=== PATIENT | female | born 1980 | race African-American/Black ===

== ENCOUNTER → 2016-11-11 | Outpatient (CLI) | payer MEDICAID ==
[~2016-11-11] MED LIST: ENOX40P SC; ENOX40P SQ; GLYB2.5T3 PO; IBUP-232 PO; INSU1INJ4 SQ; MAKE250I IM; OXYC1SOL5 PO; PRENCAP6 OR; Z.0.HUMULIN REGULARU SQ
== END ==
LOC: HPND 10:04
PROVIDERS: ATTEND Obstetrics & Gynecology
DX: O24.414 Gestational diabetes mellitus in pregnancy, insulin controlled (principal); O09.522 Supervision of elderly multigravida, second trimester; O99.112 Other diseases of the blood and blood-forming organs and certain disorders involving the immune mechanism complicating pregnancy, second trimester; D69.6 Thrombocytopenia, unspecified; Z3A.00 Weeks of gestation of pregnancy not specified
CPT/HCPCS: 76816

== ENCOUNTER 2016-11-22 12:50 | Emergency (ER) | payer MEDICAID ==
[~2016-11-22 12:50] MED LIST changes: -ENOX40P SQ; -GLYB2.5T3 PO; -IBUP-232 PO; -MAKE250I IM
[2016-11-22] MEDS ORDERED: MAKE250I IM (13:55)
[2016-11-22] MEDS ORDERED: BETAMETHASONE SOD PHOS/ACETATE SUSP 30 MG/5 ML VIAL IM ONE (14:30)
[2016-11-22 14:46] LABS: BACTERIA, URINE RARE /hpf; BLOOD, URINE TRACE (NEG); COMMENT (UR) CULT NOT INDICATED; CULTURE IF INDICATED CULT NOT INDICATED; GLUCOSE,URINE NEG (NEG); KETONE, URINE NEG (NEG); MUCUS URINE FEW /lpf (OCC); NITRITE,URINE NEG (NEG); PH, URINE 6.5 (5.0-8.5); SQUAMOUS EPITHELIAL CELL URINE 5 /hpf (0-5); URINE COLOR YELLOW (YELLW/STRAW)
== END 2016-11-22 17:13 | disposition home or self-care (01) ==
LOC: HOBED 12:50
DX: O24.419 Gestational diabetes mellitus in pregnancy, unspecified control (principal); Z3A.00 Weeks of gestation of pregnancy not specified
CPT/HCPCS: 81001; 82731; 96372; 99284; J0702

== ENCOUNTER 2016-12-19 11:05 | Observation (INO) | payer MEDICAID ==
[~2016-12-19 11:05] MED LIST changes: +MAKE250I IM; -OXYC1SOL5 PO; -PRENCAP6 OR; -Z.0.HUMULIN REGULARU SQ
[2016-12-19 12:43] LABS: AUTOMATED NEUTROPHIL # 4.7 TH/MM3 (1.8-7.7); BASOPHIL % 0.1 % (0.0-2.0); EOSINOPHIL # 0.1 TH/MM3 (0-0.4); EOSINOPHIL % 0.8 % (0.0-4.0); HEMATOCRIT 32.7 % (35.0-46.0); HEMO FLAGS DIFF FINAL; LYMPH % 21.4 % (9.0-44.0); LYMPHOCYTE # 1.5 TH/MM3 (1.0-4.8); MEAN CELL VOLUME 89.7 FL (80.0-100.0); MEAN CORPUSCULAR HEMOGLOBIN 30.3 PG (27.0-34.0); MEAN CORPUSCULAR HGB CONC 33.8 % (32.0-36.0); MONO % 13.5 % (0.0-8.0); NEUT % 64.2 % (16.0-70.0); PLATELET COUNT 320 TH/MM3 (150-450); RED BLOOD COUNT 3.64 MIL/MM3 (4.00-5.30); RED CELL DISTRIBUTION WIDTH 13.4 % (11.6-17.2); WHITE BLOOD COUNT 7.2 TH/MM3 (4.0-11.0)
[2016-12-19] MEDS ORDERED: MEPERIDINE HCL 50 MG/ML VIAL IM ONE (12:45)
[2016-12-19] MEDS ORDERED: PHENERGAN IM ONE (12:45)
[2016-12-19 13:18] LABS: ANION GAP 10 MEQ/L (5-15); AST (GOT) 5 U/L (15-37); BICARBONATE 21.3 MEQ/L (21.0-32.0); BLOOD UREA NITROGEN 8 MG/DL (7-18); CHLORIDE 105 MEQ/L (98-107); GLOMERULAR FILTRATION RATE 225 ML/MIN (>89); POTASSIUM 3.7 MEQ/L (3.5-5.1); SODIUM (NA) 136 MEQ/L (136-145); URIC ACID 2.8 MG/DL (2.6-6.0)
[2016-12-19 13:19] LABS: ALT (GPT) 13 U/L (10-53)
[2016-12-19 13:21] LABS: ALKALINE PHOSPHATASE 152 U/L (45-117); BETA-HYDROXYBUTYRATE 0.14 MMOL/L (0.00-0.39); TOTAL BILIRUBIN ADULT 0.2 MG/DL (0.2-1.0)
[2016-12-19 15:47] LABS: BLOOD, URINE TRACE (NEG); COMMENT (UR) CULT NOT INDICATED; CULTURE IF INDICATED CULT NOT INDICATED; GLUCOSE,URINE 300 mg/dL (NEG); KETONE, URINE 10 mg/dL (NEG); MUCUS URINE FEW /lpf (OCC); NITRITE,URINE NEG (NEG); SQUAMOUS EPITHELIAL CELL URINE 1 /hpf (0-5); URINE COLOR YELLOW (YELLW/STRAW)
[2016-12-19 16:28] LABS: HEMOGLOBIN Ao 83.8 %; HEMOGLOBIN F 1.1 %; HEMOGLOBIN LA1C 2.2 %; HEMOGLOBIN P3 3.8 %
[2016-12-19] MEDS ORDERED: ZOLPIDEM TARTRATE 10 MG TAB PO ONE (16:30)
--- NOTE | 2016-12-19 16:37 | HHI.HP ---
HPI Chief Complaint 33 weeks NV, MCCAIN elevated sugars despite compliance hx pre eclampsia Hx thrombophilia Hx PTD Date Seen: Dec 19, 2016 Travel History International Travel<30 Days: No Contact w/Intl Traveler<30Days: No Known Affected Area: No History of Present Illness HPI 36 yo mbf at 33+ weeks with complicated hx. Immediate concerns are MCCAIN , scotoma, N, V and anorexia with IDDM and food intolerance. Hx pre eclampsia at 33 weeks Hx of 9 losses before thrombophilia identified. 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 Obstetric History Obstetric History 2 viable deliveries at 34 and 37 loss at 24 weeks 9 first trimester losses Family History Family History: Negative Social History Alcohol Use: No Tobacco Use: No Substance Abuse: No Allergies-Medications (Allergen,Severity, Reaction): Coded Allergies: Latex (Verified Allergy, Severe, 11/16/14) Red Dyes - Various (Verified Allergy, Severe, HIVES, 11/16/14) Home Meds Reported Medications Hydroxyprogesterone Caproate Inj ([place] Inj)250 Mg/Ml Soi328 Mg IM ONCE PRN ( weekly) #1 VIAL Ref 0 11/22/16 Insulin Isophane (Human) (Humulin N Kwikpen)100 Unit/Ml Inj30 Units SQ HS 11/16/14 Insulin Isophane (Human) (Humulin N Kwikpen)100 Unit/Ml Inj30 Units SQ DAILYAC 11/16/14 Enoxaparin sodium (Lovenox)40 Mg/0.4 Ml Inj40 Mg SC 08/17/12 Review of Systems Eyes: Blurred Vision, Visual changes HENT: Headaches Cardiovascular: Palpitations Gastrointestinal: Nausea, Vomiting, Loss of Appetite Genitourinary: Frequency Neurologic: Headache Psychiatric: Anxiety Physical Exam Narrative GENERAL: Well-nourished, well-developed patient. SKIN: Warm and dry. HEAD: Normocephalic and atraumatic. EYES: No scleral icterus. No injection or drainage. ENT: No nasal drainage noted. Mucous membranes pink. Airway patent. NECK: Supple, trachea midline. No JVD. CARDIOVASCULAR: Regular rate and rhythm without murmurs, gallops, or rubs. intermittently 140's maternal rate RESPIRATORY: Breath sounds equal bilaterally. No accessory muscle use. BREASTS: Bilateral exam showed no masses , no retractions, no nipple discharge. ABDOMEN/GI: Abdomen soft, non-tender, bowel sounds present, no rebound, no guarding 35 External Genitalia: intact and normal in appearance 1/50/anterior and soft Membranes: [intact Uterine Contractions: no FHT's: category 1 Reactive: [-] Variability: [-] Decels: [-] EXTREMITIES: No cyanosis or edema. BACK: Nontender without obvious deformity. No CVA tenderness. NEUROLOGICAL: Awake and alert. Motor and sensory grossly within normal limits. Five out of 5 muscle strength in all muscle groups. Normal speech. Data Data Orders Complete Blood Count With Diff (12/19/16 12:26) Beta Hydroxybutyrate (Acetone) (12/19/16 12:26) Comprehensive Metabolic Panel (12/19/16 12:26) Uric Acid (12/19/16 12:26) Hemoglobin (Hgb) A1c (12/19/16 12:26) Diet Ob Consistent Carb (12/19/16 Lunch) Insulin Human Nph Inj (Novolin N Inj) (12/19/16 18:00) Meperidine Inj (Demerol Inj) (12/19/16 12:45) Non-Formulary Drug (12/19/16 12:45) Insulin Aspart Inj (Novolog Inj) (12/19/16 14:00) Urinalysis - C+S If Indicated (12/19/16 15:29) Specimen To Be Collected PRN (12/19/16 15:29) Electrocardiogram (12/19/16 ) Diet Ob Consistent Carb (12/19/16 Dinner) Us Ob Repeat/Fu(Growth) (12/20/16 ) Dietary (Dietitian) Consult (12/19/16 ) Zolpidem (Ambien) (12/19/16 16:30) Prochlorperazine Inj (Compazine Inj) (12/19/16 16:30) Labs Laboratory Tests Test 12/19/16 12/19/16 12:15 12:30 White Blood Count 7.2 Red Blood Count 3.64 Hemoglobin 11.0 Hematocrit 32.7 Mean Corpuscular Volume 89.7 Mean Corpuscular Hemoglobin 30.3 Mean Corpuscular Hemoglobin 33.8 Concent Red Cell Distribution Width 13.4 Platelet Count 320 Mean Platelet Volume 7.8 Neutrophils (%) (Auto) 64.2 Lymphocytes (%) (Auto) 21.4 Monocytes (%) (Auto) 13.5 Eosinophils (%) (Auto) 0.8 Basophils (%) (Auto) 0.1 Neutrophils # (Auto) 4.7 Lymphocytes # (Auto) 1.5 Monocytes # (Auto) 1.0 Eosinophils # (Auto) 0.1 Basophils # (Auto) 0.0 CBC Comment DIFF FINAL Differential Comment Sodium Level 136 Potassium Level 3.7 Chloride Level 105 Carbon Dioxide Level 21.3 Anion Gap 10 Blood Urea Nitrogen 8 Creatinine 0.39 Estimat Glomerular Filtration 225 Rate Random Glucose 118 Uric Acid 2.8 Calcium Level 9.4 Total Bilirubin 0.2 Aspartate Amino Transf 5 (AST/SGOT) Alanine Aminotransferase 13 (ALT/SGPT) Alkaline Phosphatase 152 Total Protein 7.2 Albumin 3.0 B-Hydroxybutyrate 0.14 Urine Color YELLOW Urine Turbidity CLEAR Urine pH 6.0 Urine Specific [place] 1.025 Urine Protein 30 Urine Glucose (UA) 300 Urine Ketones 10 Urine Occult Blood TRACE Urine Nitrite NEG Urine Bilirubin NEG Urine Urobilinogen LESS THAN 2.0 Urine Leukocyte Esterase NEG Urine RBC 3 Urine WBC LESS THAN 1 Urine Squamous Epithelial 1 Cells Urine Mucus FEW Urine Yeast (Budding) RARE Microscopic Urinalysis Comment CULT NOT INDICATED Assessment/Plan Problem List: (1) Gestational diabetes (2) History of delivery, currently (3) History of coagulopathy (4) Protein S deficiency complicating , antepartum (5) Maternal antithrombin III deficiency complicating (6) Migraine headache Assessment and Plan labs to date reassuring awaiting 24 hour urine and accuchecks in house watch diet watch for labor and pre eclampsia or signs compromise Janina Brian MD Dec 19, 2016 16:37
[2016-12-19] MEDS ORDERED: ENOXAPARIN SODIUM 40 MG/0.4 ML SYRINGE SQ SCH (17:00)
[2016-12-19] MEDS: INSULIN ASPART 1,000 UNITS/10 ML VIAL SQ SCH (19:30)
[2016-12-19] MEDS: INSULIN HUMAN NPH 1,000 UNITS/10 ML VIAL SQ SCH (19:30)
[2016-12-19] MEDS: ACETAMINOPHEN 325 MG TAB PO PRN (22:30)
[2016-12-20] MEDS: INSULIN ASPART 1,000 UNITS/10 ML VIAL SQ SCH ×3 (08:24→17:10)
[2016-12-20] MEDS: INSULIN HUMAN NPH 1,000 UNITS/10 ML VIAL SQ SCH ×2 (08:25→17:11)
[2016-12-20] MEDS: PROCHLORPERAZINE INJ 10 MG/2 ML VIAL IM PRN (08:36)
[2016-12-20] MEDS: ENOXAPARIN SODIUM 40 MG/0.4 ML SYRINGE SQ SCH (09:22)
[2016-12-20 11:27] LABS: HEMATOCRIT 31.9 % (35.0-46.0); MEAN CELL VOLUME 89.2 FL (80.0-100.0); MEAN CORPUSCULAR HEMOGLOBIN 30.6 PG (27.0-34.0); MEAN CORPUSCULAR HGB CONC 34.3 % (32.0-36.0); PLATELET COUNT 322 TH/MM3 (150-450); RED BLOOD COUNT 3.57 MIL/MM3 (4.00-5.30); RED CELL DISTRIBUTION WIDTH 13.8 % (11.6-17.2); REVIEW FLAG FINAL; WHITE BLOOD COUNT 6.1 TH/MM3 (4.0-11.0)
[2016-12-20 11:51] LABS: INDIRECT BILIRUBIN 0.1 MG/DL (0.0-0.8); TOTAL BILIRUBIN ADULT 0.2 MG/DL (0.2-1.0); URIC ACID 3.5 MG/DL (2.6-6.0)
[2016-12-20 12:07] LABS: URINE TOTAL PROTEIN TIMED 39.2 MG/DL
[2016-12-20] MEDS: LORATADINE 10 MG TAB PO SCH (13:37)
--- NOTE | 2016-12-20 15:15 | EKG ---
Date Performed: 12/19/2016 Time Performed: 17:06:19 PTAGE: 36 years EKG: SINUS TACHYCARDIA ABNORMAL RHYTHM ECG Since PREVIOUS TRACING 11/16/2014, no significant change. PREVIOUS TRACIN11/16/2014 21.16 DOCTOR: Davide Negrete Interpretating Date/Time 12/20/2016 15:14:22
[2016-12-20] MEDS ORDERED: ZOLPIDEM TARTRATE 10 MG TAB PO PRN (20:15)
[2016-12-20] MEDS: ACETAMINOPHEN 325 MG TAB PO PRN (20:23)
[2016-12-21] MEDS: PROCHLORPERAZINE INJ 10 MG/2 ML VIAL IM PRN (07:30)
[2016-12-21] MEDS: LORATADINE 10 MG TAB PO SCH (07:31)
[2016-12-21] MEDS ORDERED: INSULIN ASPART 1,000 UNITS/10 ML VIAL SQ ONE (08:45)
[2016-12-21] MEDS ORDERED: INSULIN HUMAN NPH 1,000 UNITS/10 ML VIAL SQ ONE (09:15)
--- NOTE | 2016-12-21 09:37 | PD.OB.ANTE ---
Subjective Diagnosis: (1) Gestational diabetes (2) History of delivery, currently (3) History of coagulopathy (4) Protein S deficiency complicating , antepartum (5) Maternal antithrombin III deficiency complicating (6) Migraine headache Interval History This note is for December 20 Aida states that MCCAIN feels like sinuses and prior use of zyrtec and antibiotics have helped itin the past. Given claritin today with resolution strip category sugars improving no contractions plan to discharge on Thursday if remains improved and 24 hour urine not worrisom (all other parameters for pre eclampsia are negative) Objective Lab & Micro Results Test 12/20/16 12/20/16 11:02 11:30 White Blood Count 6.1 TH/MM3 Red Blood Count 3.57 MIL/MM3 Hemoglobin 10.9 GM/DL Hematocrit 31.9 % Mean Corpuscular Volume 89.2 FL Mean Corpuscular Hemoglobin 30.6 PG Mean Corpuscular Hemoglobin 34.3 % Concent Red Cell Distribution Width 13.8 % Platelet Count 322 TH/MM3 Mean Platelet Volume 7.8 FL Uric Acid 3.5 MG/DL Total Bilirubin 0.2 MG/DL Direct Bilirubin 0.1 MG/DL Indirect Bilirubin 0.1 MG/DL Aspartate Amino Transf 8 U/L (AST/SGOT) Alanine Aminotransferase 12 U/L (ALT/SGPT) Alkaline Phosphatase 153 U/L Total Protein 7.1 GM/DL Albumin 2.8 GM/DL Urine Total Volume 24 Hours 970 ML Urine Total Protein 24 Hour 380 MG/24HR Physical Exam GENERAL: Well-nourished, well-developed patient. CARDIOVASCULAR: Regular rate and rhythm without murmurs, gallops, or rubs. RESPIRATORY: Breath sounds equal bilaterally. No accessory muscle use. ABDOMEN/GI: Abdomen soft, non-tender. Fundus: [-] GENITOURINARY: External Genitalia: intact and normal in appearance Cervix: [-] Dilatation: [-] Effacement: [-] Station: [-] Presentation: [-] Membranes: [-] Uterine Contractions: [-] FHT's: Category: [-] Baseline: [-] Reactive: [-] Variability: [-] Decels: [-] EXTREMITIES: No cyanosis or edema, non-tender, without signs of DVT. Assessment and Plan Problem List: (1) Gestational diabetes Status: Acute (2) History of delivery, currently Status: Acute (3) History of coagulopathy Status: Acute (4) Protein S deficiency complicating , antepartum Status: Acute (5) Maternal antithrombin III deficiency complicating Status: Acute (6) Migraine headache Status: Acute Assessment and Plan labs to date reassuring awaiting 24 hour urine and accuchecks in house watch diet watch for labor and pre eclampsia or signs compromise Janina Brian MD Dec 21, 2016 09:37
[2016-12-21] MEDS: ENOXAPARIN SODIUM 40 MG/0.4 ML SYRINGE SQ SCH (09:40)
--- NOTE | 2016-12-21 10:32 | PD.OB.ANTE ---
Subjective Diagnosis: (1) Gestational diabetes (2) History of delivery, currently (3) History of coagulopathy (4) Protein S deficiency complicating , antepartum (5) Maternal antithrombin III deficiency complicating (6) Migraine headache Interval History Very good 24 hours with improved sugars and resolution of headache on claritan. surveillance reassuring all labs good except 24 hour protein was 380, Taking lovenox. Ready for discharge Objective Lab & Micro Results Test 12/20/16 12/20/16 11:02 11:30 White Blood Count 6.1 TH/MM3 Red Blood Count 3.57 MIL/MM3 Hemoglobin 10.9 GM/DL Hematocrit 31.9 % Mean Corpuscular Volume 89.2 FL Mean Corpuscular Hemoglobin 30.6 PG Mean Corpuscular Hemoglobin 34.3 % Concent Red Cell Distribution Width 13.8 % Platelet Count 322 TH/MM3 Mean Platelet Volume 7.8 FL Uric Acid 3.5 MG/DL Total Bilirubin 0.2 MG/DL Direct Bilirubin 0.1 MG/DL Indirect Bilirubin 0.1 MG/DL Aspartate Amino Transf 8 U/L (AST/SGOT) Alanine Aminotransferase 12 U/L (ALT/SGPT) Alkaline Phosphatase 153 U/L Total Protein 7.1 GM/DL Albumin 2.8 GM/DL Urine Total Volume 24 Hours 970 ML Urine Total Protein 24 Hour 380 MG/24HR Physical Exam GENERAL: Well-nourished, well-developed patient. CARDIOVASCULAR: Regular rate and rhythm without murmurs, gallops, or rubs. RESPIRATORY: Breath sounds equal bilaterally. No accessory muscle use. ABDOMEN/GI: Abdomen soft, non-tender. Fundus: [-] GENITOURINARY: External Genitalia: intact and normal in appearance Cervix: [-] Dilatation: [-] Effacement: [-] Station: [-] Presentation: [-] Membranes: [-] Uterine Contractions: [-] FHT's: Category: [-] Baseline: [-] Reactive: [-] Variability: [-] Decels: [-] EXTREMITIES: No cyanosis or edema, non-tender, without signs of DVT. Assessment and Plan Problem List: (1) Gestational diabetes Status: Acute (2) History of delivery, currently Status: Acute (3) History of coagulopathy Status: Acute (4) Protein S deficiency complicating , antepartum Status: Acute (5) Maternal antithrombin III deficiency complicating Status: Acute (6) Migraine headache Status: Acute Assessment and Plan Ready for discharge continue current diabetic regimen take daily claratin children with mom watch for symptoms of pre eclampsia RTO Janina Wynne MD Dec 21, 2016 10:32
--- NOTE | 2016-12-21 10:34 | HHI.DCPOC ---
Discharge Care Plan Report Symptoms to Your Doctor -Temperature above 100.5 degrees -Redness, of incision or excessive or foul smelling drainage -Unusual pain or calf pain -Increased vaginal bleeding -Painful or difficulty urinating -Feelings of extreme sadness or anxiety after 2 weeks Goals to Promote Your Health * To prevent worsening of your condition and complications * To maintain your health at the optimal level Directions to Meet Your Goals Take your medications as prescribed Follow your dietary instruction Follow activity as directed Ensure plenty of rest for recovery Drink fluids for hydration Keep your appointments as scheduled Take your immunizations and boosters as scheduled If your symptoms worsen call your PCP, if no PCP go to Urgent Care Center or Emergency Room Smoking is Dangerous to Your Health. Avoid second hand smoke Call the 24-hour crisis hotline for domestic abuse at Janina Brian MD Dec 21, 2016 10:34
[2016-12-21] MEDS ORDERED: INSULIN ASPART 1,000 UNITS/10 ML VIAL SQ SCH (12:00)
[2016-12-21] MEDS ORDERED: INSULIN HUMAN NPH 1,000 UNITS/10 ML VIAL SQ SCH (18:00)
== END 2016-12-21 11:06 | disposition home or self-care (01) ==
LOC: H2EA 11:05
PROVIDERS: ADMIT Obstetrics & Gynecology; ATTEND Obstetrics & Gynecology
DX: O24.419 Gestational diabetes mellitus in pregnancy, unspecified control (principal); O09.213 Supervision of pregnancy with history of pre-term labor, third trimester; O99.113 Other diseases of the blood and blood-forming organs and certain disorders involving the immune mechanism complicating pregnancy, third trimester; D68.9 Coagulation defect, unspecified; D68.59 Other primary thrombophilia; O99.353 Diseases of the nervous system complicating pregnancy, third trimester; G43.909 Migraine, unspecified, not intractable, without status migrainosus; Z3A.33 33 weeks gestation of pregnancy; O26.893 Other specified pregnancy related conditions, third trimester; R11.2 Nausea with vomiting, unspecified; R00.0 Tachycardia, unspecified; Z79.4 Long term (current) use of insulin; R63.0 Anorexia; O99.343 Other mental disorders complicating pregnancy, third trimester; F41.9 Anxiety disorder, unspecified; O99.89 Other specified diseases and conditions complicating pregnancy, childbirth and the puerperium; H53.8 Other visual disturbances; H53.459 Other localized visual field defect, unspecified eye; O99.613 Diseases of the digestive system complicating pregnancy, third trimester; K90.49 Malabsorption due to intolerance, not elsewhere classified; R00.2 Palpitations; R94.31 Abnormal electrocardiogram [ECG] [EKG]
CPT/HCPCS: 80053; 80076; 81001; 82010; 82948; 83036; 84157; 84550; 85025; 85027; 93005; J0780; J1650; J1815; J2175; G0378

== ENCOUNTER 2016-12-26 10:15 | Inpatient (IN) | payer MEDICAID ==
[2016-12-26] VITALS (88 sets, daily range): BP systolic 111–127; BP diastolic 61–71; PULSE 61–119; RESP 18; TEMP 98.1–98.8
[2016-12-26] MEDS ORDERED: MEPERIDINE HCL 25 MG/ML VIAL IV ONE (12:00)
[2016-12-26] MEDS ORDERED: BETAMETHASONE SOD PHOS/ACETATE SUSP 30 MG/5 ML VIAL IM ONE (12:00)
--- NOTE | 2016-12-26 12:00 | HHI.HP ---
HPI Chief Complaint 34+ week IUP with severe MCCAIN, Emesis, vision changes, 2+ protein and pelvic cramping Gestational diabetes requiring insulin with variable control Protein S and Antithrombin III deficiency on lovenox 40 mg Date Seen: Dec 26, 2016 Travel History International Travel<30 Days: No Contact w/Intl Traveler<30Days: No Known Affected Area: No History of Present Illness HPI 36 yo mbf at 34+ weeks FREDDY who has been under my care since the beginning of her PNC for her first viable child in 2012. At that time she was diagnosed with Antithromibn III and protein S deficiency and started on lovenox and carried that baby to 33 weeks ( healthy girl) She conceived in 2013 and carried to 36+ and was induced for pre eclampsia. She developed GDM that and required insulin. She had difficulty with LARC and conceived unexpectedly in June and is now 34+ weeks. She has required high doses of insulin (she needed nothing between the pregnancies), nena, and daily lovenox. She has gained 10 pounds. She has suffered from sinus headaches. She is overwhelmed with moving to new home, two toddlers and the difficulty of this . She has been hospitalized several times (most recently one week ago ) and last 24 hour protein was just over 300mg/24 hours. All other labs normal except sugars (though A1c only 6.7) surveillance has been entirely reassuring. She is not in labor. No leaking, bleeding. BPP today is 8/8. Cervix long but 2 cm anterior. Para: 2 : 12 Miscarriage: 8 : 0 History Past Medical History Narrative Medical As in HPI Obstetric History Obstetric History 8 losses--7 in first trimester and one IUFD at 24 weeks (all prior to care with [facility]) Two SVDs, 33 and 36 weeks Past Surgical History Surgical History: No Previous Surgery Family History Family History: Negative Social History Alcohol Use: No Tobacco Use: No Substance Abuse: No Allergies-Medications (Allergen,Severity, Reaction): Coded Allergies: Latex (Verified Allergy, Severe, 11/16/14) Red Dyes - Various (Verified Allergy, Severe, HIVES, 11/16/14) Home Meds Reported Medications Hydroxyprogesterone Caproate Inj ([place] Inj)250 Mg/Ml [id number] Mg IM ONCE PRN ( weekly) #1 VIAL Ref 0 11/22/16 Insulin Isophane (Human) (Humulin N Kwikpen)100 Unit/Ml Inj30 Units SQ HS 11/16/14 Insulin Isophane (Human) (Humulin N Kwikpen)100 Unit/Ml Inj30 Units SQ DAILYAC 11/16/14 Enoxaparin sodium (Lovenox)40 Mg/0.4 Ml Inj40 Mg SC 08/17/12 Review of Systems Eyes: Blurred Vision HENT: Headaches, Lightheadedness Cardiovascular: Palpitations, Tachycardia Respiratory: Short of Breath Gastrointestinal: Nausea, Vomiting Neurologic: Headache Psychiatric: Anxiety Physical Exam Narrative GENERAL: Well-nourished, well-developed patient. SKIN: Warm and dry. HEAD: Normocephalic and atraumatic. EYES: No scleral icterus. No injection or drainage. ENT: No nasal drainage noted. Mucous membranes pink. Airway patent. NECK: Supple, trachea midline. No JVD. CARDIOVASCULAR: Regular rate and rhythm without murmurs, gallops, or rubs. She is tachycardic RESPIRATORY: Breath sounds equal bilaterally. No accessory muscle use. BREASTS: Bilateral exam showed no masses , no retractions, no nipple discharge. GENITOURINARY: ExtABDOMEN/GI: Abdomen soft, non-tender, bowel sounds present, no rebound, no guarding FH 35 Genitalia: intact and normal in appearance 50/2cm/anterior and low 140's EXTREMITIES: No cyanosis or edema. BACK: Nontender without obvious deformity. No CVA tenderness. NEUROLOGICAL: Awake and alert. Motor and sensory grossly within normal limits. Five out of 5 muscle strength in all muscle groups. Normal speech. 2-3/4 DTRs Data Data Orders Vital Signs (Adult) YENY.Q4H (12/26/16 11:04) Diet Npo Except Meds (12/26/16 Lunch) Total Protein 24hr Urine (12/27/16 11:04) Bedside Glucose YENY.AC&HS (12/26/16 11:04) Scd / Pedro / Foot Pump 08,20 (12/26/16 11:04) Hepatic Functional Panel (12/26/16 11:04) Uric Acid (12/26/16 11:04) D-Dimer (12/26/16 11:04) Complete Blood Count With Diff (12/26/16 11:04) Urinalysis - C+S If Indicated (12/26/16 11:04) Specimen To Be Collected PRN (12/26/16 11:04) ^ Call Physician (12/26/16 11:04) Labs 34wk+ IUP with symptoms pre eclampsia IDDM with variable control tachycardia ob carb consistent 30 NPH twice daily 30 novolog with meals Janina Brian MD Dec 26, 2016 12:00
[2016-12-26 12:07] LABS: AUTOMATED NEUTROPHIL # 4.2 TH/MM3 (1.8-7.7); BASOPHIL % 0.3 % (0.0-2.0); EOSINOPHIL % 0.6 % (0.0-4.0); HEMATOCRIT 31.1 % (35.0-46.0); HEMO FLAGS DIFF FINAL; LYMPH % 21.1 % (9.0-44.0); LYMPHOCYTE # 1.4 TH/MM3 (1.0-4.8); MEAN CORPUSCULAR HEMOGLOBIN 30.3 PG (27.0-34.0); MEAN CORPUSCULAR HGB CONC 33.6 % (32.0-36.0); MONO % 13.2 % (0.0-8.0); NEUT % 64.8 % (16.0-70.0); PLATELET COUNT 294 TH/MM3 (150-450); RED BLOOD COUNT 3.45 MIL/MM3 (4.00-5.30); RED CELL DISTRIBUTION WIDTH 13.5 % (11.6-17.2); WHITE BLOOD COUNT 6.4 TH/MM3 (4.0-11.0)
[2016-12-26] MEDS ORDERED: MEPERIDINE HCL 25 MG/ML VIAL IM ONE (12:18)
[2016-12-26 12:30] LABS: BLOOD, URINE SMALL (NEG); COMMENT (UR) CULT NOT INDICATED; CULTURE IF INDICATED CULT NOT INDICATED; GLUCOSE,URINE TRACE mg/dL (NEG); HYALINE CAST, URINE 1 /lpf (RARE); KETONE, URINE 10 mg/dL (NEG); MUCUS URINE FEW /lpf (OCC); NITRITE,URINE NEG (NEG); SQUAMOUS EPITHELIAL CELL URINE 3 /hpf (0-5); URINE COLOR YELLOW (YELLW/STRAW)
[2016-12-26 12:30] LABS: ALT (GPT) 15 U/L (10-53); AST (GOT) 7 U/L (15-37); URIC ACID 3.4 MG/DL (2.6-6.0)
[2016-12-26 12:32] LABS: ALKALINE PHOSPHATASE 164 U/L (45-117); INDIRECT BILIRUBIN 0.1 MG/DL (0.0-0.8); TOTAL BILIRUBIN ADULT 0.2 MG/DL (0.2-1.0)
[2016-12-26] MEDS ORDERED: ENOXAPARIN SODIUM 40 MG/0.4 ML SYRINGE SQ ONE (13:15)
[2016-12-26] MEDS ORDERED: METOPROLOL TARTRATE 50 MG TAB PO ONE (13:15)
[2016-12-26] MEDS ORDERED: INSULIN ASPART 1,000 UNITS/10 ML VIAL SQ SCH (13:15)
[2016-12-26] MEDS: ONDANSETRON ODT 4 MG TAB PO PRN (14:14)
[2016-12-26] MEDS ORDERED: INSULIN ASPART 1,000 UNITS/10 ML VIAL SQ ONE (18:00)
[2016-12-26] MEDS: INSULIN ASPART 1,000 UNITS/10 ML VIAL SQ SCH (18:58)
[2016-12-26] MEDS: INSULIN HUMAN NPH 1,000 UNITS/10 ML VIAL SQ SCH (18:58)
[2016-12-26] MEDS ORDERED: DEXTROSE 50% IN WATER 50 ML VIAL(D50) IV PUSH PRN (22:30)
[2016-12-26] MEDS ORDERED: GLUCAGON 1 MG/ML VIAL OTHER PRN (22:30)
[2016-12-26] MEDS ORDERED: ZOLPIDEM TARTRATE 5 MG TAB PO PRN (22:45)
[2016-12-26] MEDS ORDERED: ACETAMINOPHEN/HYDROcodone 325 MG/5 MG TAB PO PRN (22:45)
[2016-12-27] VITALS (203 sets, daily range): BP systolic 111–141; BP diastolic 65–94; PULSE 88–163; RESP 17–19; TEMP 98–98.9
[2016-12-27] MEDS ORDERED: ACETAMINOPHEN/HYDROcodone 325 MG/5 MG TAB PO PRN (05:15)
[2016-12-27] MEDS: LOW DOSE INSULIN NOVOLOG SUPPLEMENTAL SCALE SQ SCH ×4 (07:00→21:00)
[2016-12-27] MEDS: INSULIN HUMAN NPH 1,000 UNITS/10 ML VIAL SQ SCH ×2 (09:31→18:23)
[2016-12-27] MEDS: INSULIN ASPART 1,000 UNITS/10 ML VIAL SQ SCH ×3 (09:31→18:22)
[2016-12-27 11:08] LABS: URINE TOTAL PROTEIN TIMED 23.9 MG/DL
[2016-12-27] MEDS ORDERED: DOCUSATE SODIUM 50 MG/SENNA 8.6 MG TAB PO PRN (13:45)
--- NOTE | 2016-12-27 13:45 | HHI.PR ---
Subjective Remarks Doing ok, Still having migranes which she has had for some time. No ruq pain. some visual changes with the migraine only. Some constipation. Objective Vital Signs Date Time Temp Pulse Resp B/P Pulse Ox O2 Delivery O2 Flow Rate FiO2 12/27/16 12:20 111 12/27/16 12:15 110 12/27/16 12:10 104 12/27/16 12:05 111 12/27/16 12:00 98.0 18 12/27/16 12:00 104 12/27/16 12:00 116/65 12/27/16 11:55 107 12/27/16 11:50 111 12/27/16 11:45 109 12/27/16 11:40 112 12/27/16 11:35 113 12/27/16 11:30 113 12/27/16 11:25 117 12/27/16 11:20 117 12/27/16 11:15 114 12/27/16 11:05 117 12/27/16 11:00 17 12/27/16 11:00 115 12/27/16 10:55 117 12/27/16 10:50 116 12/27/16 10:45 115 12/27/16 10:40 109 12/27/16 10:35 112 12/27/16 10:30 112 12/27/16 10:25 106 12/27/16 10:20 113 12/27/16 10:15 114 12/27/16 10:10 119 12/27/16 10:05 117 12/27/16 10:00 18 12/27/16 10:00 116 12/27/16 09:55 120 12/27/16 09:50 117 12/27/16 09:45 113 12/27/16 09:40 116 12/27/16 09:35 121 12/27/16 09:30 109 12/27/16 09:25 105 12/27/16 09:20 111 12/27/16 09:15 109 12/27/16 09:10 106 12/27/16 09:05 106 12/27/16 09:00 18 12/27/16 09:00 107 12/27/16 08:55 106 12/27/16 08:50 107 12/27/16 08:45 106 12/27/16 08:40 106 12/27/16 08:35 88 12/27/16 08:30 110 12/27/16 08:25 105 12/27/16 08:20 101 12/27/16 08:15 103 12/27/16 08:10 95 12/27/16 08:05 105 12/27/16 08:00 108 12/27/16 07:24 98.2 19 12/27/16 07:24 121 128/72 12/27/16 07:10 105 12/27/16 07:05 104 12/27/16 07:00 96 12/27/16 06:55 96 12/27/16 06:50 100 12/27/16 06:45 98 12/27/16 06:40 97 12/27/16 06:35 97 12/27/16 06:30 98 12/27/16 06:25 102 12/27/16 06:20 98 12/27/16 06:15 94 12/27/16 06:10 93 12/27/16 06:05 96 12/27/16 06:00 97 12/27/16 05:55 99 12/27/16 05:50 98 12/27/16 05:45 99 12/27/16 05:40 99 12/27/16 05:35 103 12/27/16 05:30 99 12/27/16 05:25 96 12/27/16 05:20 95 12/27/16 05:15 91 12/27/16 05:10 109 12/27/16 05:05 96 12/27/16 05:00 107 18 12/27/16 04:55 96 12/27/16 04:50 113 12/27/16 04:40 98 12/27/16 04:35 98 12/27/16 04:30 101 12/27/16 04:25 102 12/27/16 04:20 105 12/27/16 04:15 102 12/27/16 04:10 107 12/27/16 04:05 110 12/27/16 04:00 18 12/27/16 04:00 110 12/27/16 03:55 110 12/27/16 03:50 107 12/27/16 03:45 110 12/27/16 03:40 111 12/27/16 03:35 110 12/27/16 03:30 108 12/27/16 03:25 96 12/27/16 03:15 108 12/27/16 03:10 107 12/27/16 03:05 111 12/27/16 03:00 107 12/27/16 03:00 18 12/27/16 02:40 112 12/27/16 02:35 102 12/27/16 02:30 110 12/27/16 02:25 109 12/27/16 02:20 108 12/27/16 02:15 102 12/27/16 02:10 104 12/27/16 02:05 101 12/27/16 02:00 109 12/27/16 02:00 18 12/27/16 01:55 106 12/27/16 01:50 104 12/27/16 01:45 105 12/27/16 01:40 106 12/27/16 01:35 106 12/27/16 01:30 103 12/27/16 01:25 112 12/27/16 01:20 104 12/27/16 01:15 106 12/27/16 01:10 108 12/27/16 01:05 111 12/27/16 01:00 18 12/27/16 01:00 108 12/27/16 00:55 110 12/27/16 00:50 110 12/27/16 00:30 115 12/27/16 00:25 115 12/27/16 00:20 112 12/27/16 00:15 109 12/27/16 00:05 109 12/27/16 00:05 109 12/27/16 00:00 107 12/27/16 00:00 18 12/26/16 23:55 110 12/26/16 23:55 110 12/26/16 23:50 110 12/26/16 23:50 110 12/26/16 23:45 111 12/26/16 23:40 110 12/26/16 23:35 105 12/26/16 23:30 106 12/26/16 23:25 109 12/26/16 23:20 106 12/26/16 23:15 108 12/26/16 23:10 106 12/26/16 23:05 108 12/26/16 23:00 107 12/26/16 23:00 98.1 12/26/16 23:00 18 12/26/16 22:55 115 12/26/16 22:50 61 125/71 12/26/16 22:50 105 12/26/16 22:40 108 12/26/16 22:35 105 12/26/16 22:30 108 12/26/16 22:25 108 12/26/16 22:20 105 12/26/16 22:15 110 12/26/16 22:10 107 12/26/16 22:05 107 12/26/16 22:00 18 12/26/16 22:00 108 12/26/16 21:55 109 12/26/16 21:50 110 12/26/16 21:45 107 12/26/16 21:40 107 12/26/16 21:35 105 12/26/16 21:30 104 12/26/16 21:25 105 12/26/16 21:20 106 12/26/16 21:15 107 12/26/16 21:10 106 12/26/16 21:05 100 12/26/16 21:00 18 12/26/16 21:00 103 12/26/16 20:45 106 12/26/16 20:40 113 12/26/16 20:35 109 12/26/16 20:30 102 12/26/16 20:25 102 12/26/16 20:20 102 12/26/16 20:15 101 12/26/16 20:10 103 12/26/16 20:05 103 12/26/16 20:00 102 12/26/16 19:55 102 12/26/16 19:50 101 12/26/16 19:46 98.8 95 18 111/61 12/26/16 19:45 100 12/26/16 19:40 98 12/26/16 19:30 97 12/26/16 19:25 101 12/26/16 19:20 99 12/26/16 19:15 105 12/26/16 19:10 110 12/26/16 19:00 101 12/26/16 18:55 100 12/26/16 18:50 107 12/26/16 18:45 104 12/26/16 18:40 96 12/26/16 18:35 102 12/26/16 18:30 102 12/26/16 18:25 102 12/26/16 18:20 102 12/26/16 18:15 103 12/26/16 18:10 99 12/26/16 18:05 103 12/26/16 18:00 100 12/26/16 17:12 98.6 12/26/16 16:30 104 12/26/16 16:25 104 12/26/16 16:20 102 12/26/16 16:15 102 12/26/16 16:10 101 12/26/16 16:05 100 12/26/16 16:00 106 12/26/16 15:55 106 12/26/16 15:50 108 12/26/16 15:45 112 12/26/16 15:40 113 12/26/16 15:35 115 12/26/16 15:30 118 12/26/16 15:22 113 127/66 12/26/16 15:20 117 12/26/16 15:15 118 12/26/16 15:10 119 12/26/16 15:05 117 12/26/16 15:00 118 Result Diagram: 12/26/16 1140 Other Results WDWN comfortable in bed visiting with family. Does not look like she is in pain Chest is clear CV RRR no murmer,,( Mildly tachycardic the entire visit) Abd is soft and non tender. Pelvic deferred Ext no swelling,, DTR +1 Assessment and Plan Assessment and Plan IUP @ 34w3d Diabetes on sliding scale in addition to the regular dose. Will follow with a sliding scale now as I feel the steroids are making the sugars high. she may require more insulin in the future but for now will continue the sliding scale for now. Proteinuria.. I do not feel she is pre eclamptic at this time. Her labs are all normal, clinically she looks great Will not stop labor if it occurs but would not induce her at this this time either. Migranes.. she states she is having a terrible headache but she does not appear to be in pain. Tachycardia... she has this with her pregnancies and was worked up last . I feel this is benign. Constipation.. will give pericolace and some MOM today. Lexi Pierson MD Dec 27, 2016 13:45
[2016-12-27] MEDS ORDERED: ENOXAPARIN SODIUM 40 MG/0.4 ML SYRINGE SQ SCH ×2 (14:00→15:00)
[2016-12-27] MEDS ORDERED: LACTATED RINGER'S 1000 ML INJ 1,000 ML IV ONE (14:00)
[2016-12-27] MEDS ORDERED: MAGNESIUM HYDROXIDE SUSP 30 ML CUP PO ONE (14:00)
[2016-12-27] MEDS ORDERED: LACTATED RINGER'S 1000 ML INJ 1,000 ML IV SCH (15:00)
[2016-12-28] VITALS (7 sets, daily range): BP systolic 121–123; BP diastolic 66–73; PULSE 94–134; RESP 17–18; TEMP 98.8–98.9
[2016-12-28 06:00] LABS: HEMATOCRIT 28.1 % (35.0-46.0); MEAN CORPUSCULAR HEMOGLOBIN 30.9 PG (27.0-34.0); MEAN CORPUSCULAR HGB CONC 34.7 % (32.0-36.0); PLATELET COUNT 300 TH/MM3 (150-450); RED BLOOD COUNT 3.15 MIL/MM3 (4.00-5.30); RED CELL DISTRIBUTION WIDTH 13.6 % (11.6-17.2); REVIEW FLAG FINAL
[2016-12-28 06:33] LABS: ALT (GPT) 13 U/L (10-53); ANION GAP 10 MEQ/L (5-15); AST (GOT) 4 U/L (15-37); BICARBONATE 23.3 MEQ/L (21.0-32.0); BLOOD UREA NITROGEN 9 MG/DL (7-18); CHLORIDE 105 MEQ/L (98-107); GLOMERULAR FILTRATION RATE 207 ML/MIN (>89); POTASSIUM 3.8 MEQ/L (3.5-5.1); SODIUM (NA) 138 MEQ/L (136-145); URIC ACID 3.3 MG/DL (2.6-6.0)
[2016-12-28 06:35] LABS: ALKALINE PHOSPHATASE 147 U/L (45-117); TOTAL BILIRUBIN ADULT 0.2 MG/DL (0.2-1.0)
[2016-12-28] MEDS: LOW DOSE INSULIN NOVOLOG SUPPLEMENTAL SCALE SQ SCH (07:00)
[2016-12-28] MEDS: INSULIN ASPART 1,000 UNITS/10 ML VIAL SQ SCH (07:57)
[2016-12-28] MEDS: INSULIN HUMAN NPH 1,000 UNITS/10 ML VIAL SQ SCH (07:58)
[2016-12-28] MEDS: ONDANSETRON ODT 4 MG TAB PO PRN (08:35)
--- NOTE | 2016-12-28 09:28 | PD.OB.ANTE ---
Subjective Interval History Looks 100% better with 48 hours rest. Pre eclampsia essentially ruled out at this visit, but she remains at risk diabetic control not perfect but she continues to tweak surveillance entirely reassuring currently not rome desires to return home. Will see Thursday for BPP Objective Vital Signs Vital Signs Date Time Temp Pulse Resp B/P Pulse Ox O2 Delivery O2 Flow Rate FiO2 12/28/16 09:00 18 12/28/16 08:00 18 12/28/16 07:00 94 121/73 12/28/16 07:00 98.9 17 12/28/16 02:38 98.8 18 12/28/16 02:37 134 121/67 12/28/16 00:30 18 12/28/16 00:26 104 123/66 12/27/16 19:06 98.9 18 12/27/16 19:06 163 141/94 12/27/16 19:05 111 12/27/16 19:00 107 12/27/16 18:25 102 12/27/16 18:20 107 12/27/16 18:15 114 12/27/16 18:10 106 12/27/16 18:05 106 12/27/16 18:00 111 12/27/16 17:55 107 12/27/16 17:50 102 12/27/16 17:45 99 12/27/16 17:40 105 12/27/16 17:35 103 12/27/16 17:30 106 12/27/16 17:25 105 12/27/16 17:20 107 12/27/16 17:15 106 12/27/16 17:10 104 12/27/16 17:05 105 12/27/16 17:03 106 12/27/16 17:00 111/93 12/27/16 17:00 110 12/27/16 17:00 98.8 18 12/27/16 16:45 106 12/27/16 16:40 109 12/27/16 16:35 104 12/27/16 16:30 108 12/27/16 16:25 105 12/27/16 16:20 108 12/27/16 16:15 109 12/27/16 16:10 111 12/27/16 16:05 105 12/27/16 16:00 110 12/27/16 16:00 18 12/27/16 15:55 113 12/27/16 15:50 112 12/27/16 15:45 114 12/27/16 15:30 110 12/27/16 15:25 113 12/27/16 15:20 115 12/27/16 15:15 110 12/27/16 15:10 112 12/27/16 15:05 109 12/27/16 15:00 113 12/27/16 15:00 18 12/27/16 14:55 114 12/27/16 14:50 117 12/27/16 14:45 114 12/27/16 14:40 114 12/27/16 14:35 112 12/27/16 14:30 111 12/27/16 14:25 109 12/27/16 14:20 117 12/27/16 14:15 111 12/27/16 14:10 120 12/27/16 14:00 18 12/27/16 13:55 117 12/27/16 13:50 119 12/27/16 13:45 116 12/27/16 13:40 121 12/27/16 13:35 116 12/27/16 13:30 118 12/27/16 13:25 121 12/27/16 13:20 116 12/27/16 13:15 124 12/27/16 13:10 121 12/27/16 13:05 122 12/27/16 13:00 125 12/27/16 13:00 18 12/27/16 12:55 118 12/27/16 12:50 116 12/27/16 12:40 110 12/27/16 12:35 115 12/27/16 12:30 114 12/27/16 12:25 108 12/27/16 12:24 121 12/27/16 12:20 111 12/27/16 12:15 110 12/27/16 12:10 104 12/27/16 12:05 111 12/27/16 12:00 98.0 18 12/27/16 12:00 104 12/27/16 12:00 116/65 12/27/16 11:55 107 12/27/16 11:50 111 12/27/16 11:45 109 12/27/16 11:40 112 12/27/16 11:35 113 12/27/16 11:30 113 12/27/16 11:25 117 12/27/16 11:20 117 12/27/16 11:15 114 12/27/16 11:05 117 12/27/16 11:00 17 12/27/16 11:00 115 12/27/16 10:55 117 12/27/16 10:50 116 12/27/16 10:45 115 12/27/16 10:40 109 12/27/16 10:35 112 12/27/16 10:30 112 12/27/16 10:25 106 12/27/16 10:20 113 12/27/16 10:15 114 12/27/16 10:10 119 12/27/16 10:05 117 12/27/16 10:00 18 12/27/16 10:00 116 12/27/16 09:55 120 12/27/16 09:50 117 12/27/16 09:45 113 12/27/16 09:40 116 12/27/16 09:35 121 12/27/16 09:30 109 Lab & Micro Results Test 12/27/16 12/28/16 10:30 05:48 Urine Total Volume 24 Hours 1430 ML Urine Total Protein 24 Hour 342 MG/24HR White Blood Count 7.0 TH/MM3 Red Blood Count 3.15 MIL/MM3 Hemoglobin 9.7 GM/DL Hematocrit 28.1 % Mean Corpuscular Volume 89.0 FL Mean Corpuscular Hemoglobin 30.9 PG Mean Corpuscular Hemoglobin 34.7 % Concent Red Cell Distribution Width 13.6 % Platelet Count 300 TH/MM3 Mean Platelet Volume 7.6 FL Sodium Level 138 MEQ/L Potassium Level 3.8 MEQ/L Chloride Level 105 MEQ/L Carbon Dioxide Level 23.3 MEQ/L Anion Gap 10 MEQ/L Blood Urea Nitrogen 9 MG/DL Creatinine 0.42 MG/DL Estimat Glomerular Filtration 207 ML/MIN Rate Random Glucose 89 MG/DL Uric Acid 3.3 MG/DL Calcium Level 8.3 MG/DL Total Bilirubin 0.2 MG/DL Aspartate Amino Transf 4 U/L (AST/SGOT) Alanine Aminotransferase 13 U/L (ALT/SGPT) Alkaline Phosphatase 147 U/L Total Protein 6.6 GM/DL Albumin 2.7 GM/DL Physical Exam GENERAL: Well-nourished, well-developed patient. CARDIOVASCULAR: Regular rate and rhythm without murmurs, gallops, or rubs. RESPIRATORY: Breath sounds equal bilaterally. No accessory muscle use. ABDOMEN/GI: Abdomen soft, non-tender. Fundus: [-] GENITOURINARY: External Genitalia: intact and normal in appearance Cervix: [-] Dilatation: [-] Effacement: [-] Station: [-] Presentation: [-] Membranes: [-] Uterine Contractions: [-] FHT's: Category: [-] Baseline: [-] Reactive: [-] Variability: [-] Decels: [-] EXTREMITIES: No cyanosis or edema, non-tender, without signs of DVT. Janina Brian MD Dec 28, 2016 09:28
--- NOTE | 2016-12-28 09:29 | HHI.DCPOC ---
Discharge Care Plan Report Symptoms to Your Doctor -Temperature above 100.5 degrees -Redness, of incision or excessive or foul smelling drainage -Unusual pain or calf pain -Increased vaginal bleeding -Painful or difficulty urinating -Feelings of extreme sadness or anxiety after 2 weeks Goals to Promote Your Health * To prevent worsening of your condition and complications * To maintain your health at the optimal level Directions to Meet Your Goals Take your medications as prescribed Follow your dietary instruction Follow activity as directed Ensure plenty of rest for recovery Drink fluids for hydration Keep your appointments as scheduled Take your immunizations and boosters as scheduled If your symptoms worsen call your PCP, if no PCP go to Urgent Care Center or Emergency Room Smoking is Dangerous to Your Health. Avoid second hand smoke Call the 24-hour crisis hotline for domestic abuse at Janina Brian MD Dec 28, 2016 09:29
== END 2016-12-28 10:20 | disposition home or self-care (01) | DRG 781 ==
LOC: H2EA 10:15
PROVIDERS: ADMIT Obstetrics & Gynecology; ATTEND Obstetrics & Gynecology
DX: O24.414 Gestational diabetes mellitus in pregnancy, insulin controlled (principal); O99.113 Other diseases of the blood and blood-forming organs and certain disorders involving the immune mechanism complicating pregnancy, third trimester; D68.59 Other primary thrombophilia; O12.13 Gestational proteinuria, third trimester; O26.893 Other specified pregnancy related conditions, third trimester; G43.909 Migraine, unspecified, not intractable, without status migrainosus; R00.0 Tachycardia, unspecified; K59.00 Constipation, unspecified; Z3A.34 34 weeks gestation of pregnancy; O09.523 Supervision of elderly multigravida, third trimester
CPT/HCPCS: 80053; 80076; 81001; 82948; 84157; 84550; 85025; 85027; 85379; J0702; J1650; J1815; J2175; J7120

== ENCOUNTER 2017-01-01 12:49 | Inpatient (IN) | payer MEDICAID ==
[2017-01-01] VITALS (19 sets, daily range): BP systolic 127; BP diastolic 85; PULSE 103–109; RESP 18; TEMP 98.9
[~2017-01-01] VITALS: Ht 162.6 cm; Wt 92.5 kg
[2017-01-01] MEDS ORDERED: LACTATED RINGER'S 1000 ML INJ 1,000 ML IV PRN (14:55)
[2017-01-01] MEDS ORDERED: MINERAL OIL 10 ML VIAL TOPICAL PRN (15:00)
[2017-01-01] MEDS ORDERED: ONDANSETRON HCL 4 MG/2 ML VIAL IV PRN (15:00)
[2017-01-01] MEDS ORDERED: LIDOCAINE HCL 1% 50 ML VIAL INFIL PRN (15:00)
[2017-01-01] MEDS ORDERED: SODIUM CHLORID 0.9% 500 ML INJ 500 ML IV PRN (15:00)
[2017-01-01] MEDS ORDERED: LIDOCAINE HCL 1% 50 ML VIAL I-DERMAL PRN (15:00)
[2017-01-01] MEDS ORDERED: OXYTOCIN 30 UNITS-500ML PREMIX 500 ML IV ONE (15:00)
[2017-01-01] MEDS ORDERED: SODIUM CHLORIDE 0.9% FLUSH 10 ML FLUSH IV FLUSH PRN ×2 (15:00)
[2017-01-01] MEDS ORDERED: CITRIC ACID-SODIUM CITRATE LIQ 30 ML UDC PO SCH (15:00)
[2017-01-01] MEDS ORDERED: SODIUM CHLOR 0.9% 1000 ML INJ 1,000 ML IV PRN (16:00)
[2017-01-01 16:20] LABS: BLOOD, URINE TRACE (NEG); COMMENT (UR) CULT NOT INDICATED; CULTURE IF INDICATED CULT NOT INDICATED; GLUCOSE,URINE 1000 mg/dL (NEG); KETONE, URINE 10 mg/dL (NEG); NITRITE,URINE NEG (NEG); PH, URINE 6.5 (5.0-8.5); SQUAMOUS EPITHELIAL CELL URINE 1 /hpf (0-5); URINE COLOR LIGHT-YELLOW (YELLW/STRAW)
[2017-01-01] MEDS ORDERED: INSULIN ASPART 1,000 UNITS/10 ML VIAL SQ SCH (17:38)
--- NOTE | 2017-01-01 17:52 | HHI.HP ---
HPI Chief Complaint 35 week IUP with oligohydramnios, IDDM, thrombophilia LIZETH 3.96 today in otherwise reassuring BPP Date Seen: Jan 01, 2017 Travel History International Travel<30 Days: No Contact w/Intl Traveler<30Days: No Known Affected Area: No History of Present Illness HPI 36 yo mbf at 35 weeks EGA sent from office with LIZETH of 3.9 6/8 BPP Took her lovenox this am. 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 Developed insulin dependent GDM in first and has repeated this pattern in second and third. Diagnosed with pre eclampsia with her second and induced. Has two healthy daughters and this was unplanned but they are happy. Normotensive, sugars are high, No leaking, bleeding, NV. GFM and surveillance has been reassuring. Cervix inducible. Had lovenox this am. Continuos monitoring now with LIZETH is also reassuring. Para: 2 : 11 History Past Medical History Narrative Medical GDM requiring insulin chronic headaches protein S and antithrombin III deficiencies Obstetric History Obstetric History One 24 week IUFD and 7-8 losses in first trimester Past Surgical History Surgical History: No Previous Surgery Family History Family History: Negative Social History Alcohol Use: No Tobacco Use: No Substance Abuse: No Allergies-Medications (Allergen,Severity, Reaction): Coded Allergies: Latex (Verified Allergy, Severe, 11/16/14) Red Dyes - Various (Verified Allergy, Severe, HIVES, 11/16/14) Home Meds Reported Medications Hydroxyprogesterone Caproate Inj (Carmina Inj)250 Mg/Ml [id number] Mg IM ONCE PRN ( weekly) #1 VIAL Ref 0 11/22/16 Insulin Isophane (Human) (Humulin N Kwikpen)100 Unit/Ml Inj30 Units SQ HS 11/16/14 Insulin Isophane (Human) (Humulin N Kwikpen)100 Unit/Ml Inj30 Units SQ DAILYAC 11/16/14 Enoxaparin sodium (Lovenox)40 Mg/0.4 Ml Inj40 Mg SC 08/17/12 Review of Systems General / Constitutional: No: Fever, Weight Gain, Chills, Other Eyes: No: Diploplia, Blurred Vision, Visual changes, Pain, Photophobia HENT: No: Headaches, Vertigo, Lightheadedness Cardiovascular: No: Irregular Rhythm, Chest Pain or Discomfort, Palpitations, Tachycardia, Syncope, Varicosities, Edema, Cyanosis Respiratory: No: Cough, Short of Breath, Other Gastrointestinal: No: Nausea, Vomiting, Diarrhea Genitourinary: No: Decreased Urinary Output, Oliguria Musculoskeletal: No: Limited ROM, Weakness, Cramping, Edema, Pain Skin: No Rash, No Itching, No Dryness, No Lumps, No Change in Pigmentation, No Change in Nails, No Alopecia, No Lesions Neurologic: No: Weakness, Dizziness, Syncope, Focal Abnormalities, Coordination Problem, Headache, Slurred Speech, Seizures Psychiatric: No: Depression, Suicidal Ideations, Homicidal Ideation Endocrine: No: Heat Intolerance, Cold Intolerance, Polydipsia, Polyuria, Other Physical Exam Narrative GENERAL: Well-nourished, well-developed patient. SKIN: Warm and dry. HEAD: Normocephalic and atraumatic. EYES: No scleral icterus. No injection or drainage. ENT: No nasal drainage noted. Mucous membranes pink. Airway patent. NECK: Supple, trachea midline. No JVD. CARDIOVASCULAR: Regular rate and rhythm without murmurs, gallops, or rubs. RESPIRATORY: Breath sounds equal bilaterally. No accessory muscle use. BREASTS: Bilateral exam showed no masses , no retractions, no nipple discharge. ABDOMEN/GI: Abdomen soft, non-tender, bowel sounds present, no rebound, no guarding Gravid to [-] weeks size Fundal Height: [-] GENITOURINARY: External Genitalia: intact and normal in appearance 2 cm /thick/ anterior and high strip categoryone EXTREMITIES: No cyanosis or edema. BACK: Nontender without obvious deformity. No CVA tenderness. NEUROLOGICAL: Awake and alert. Motor and sensory grossly within normal limits. Five out of 5 muscle strength in all muscle groups. Normal speech. Data Data Orders Admit To Inpatient (01/01/17 ) Code Status (01/01/17 14:55) Vital Signs (Adult) .Per protocol (01/01/17 14:55) Activity Oob Ad Sofi (01/01/17 14:55) Heart (01/01/17 14:55) Amnioinfusion (01/01/17 14:55) Urinary Catheter Management .ONCE (01/01/17 14:55) Lactated Ringer's 1000 Ml Inj (Lr 1000 M (01/01/17 15:00) Lactated Ringer's 1000 Ml Inj (Lr 1000 M (01/01/17 14:55) Sodium Chlorid 0.9% 500 Ml Inj (Ns 500 M (01/01/17 15:00) Sodium Chlor 0.9% 1000 Ml Inj (Ns 1000 M (01/01/17 16:00) Lidocaine 1% Inj (50 Ml) (Xylocaine 1% I (01/01/17 15:00) Citric Acid-Sodium Citrate Liq (Bicitra (01/01/17 15:00) Ondansetron Inj (Zofran Inj) (01/01/17 15:00) Fentanyl Inj (Fentanyl Inj) (01/01/17 15:00) Fentanyl Inj (Fentanyl Inj) (01/01/17 15:00) Complete Blood Count With Diff (01/01/17 14:55) Hold Clot (01/01/17 14:55) Abo/Rh Blood Type (01/01/17 14:55) Urinalysis - C+S If Indicated (01/01/17 14:55) Resp Oxygen Non Rebreathe Mask (01/01/17 ) ^ Epidural / Intrathecal Infus (01/01/17 14:55) Oxytocin 30 Units-500ml Premix (Pitocin (01/01/17 15:00) Lidocaine 1% Inj (50 Ml) (Xylocaine 1% I (01/01/17 15:00) Light Mineral Oil (Muri-Lube Oil) (01/01/17 15:00) ^ Labor Induction (01/01/17 14:55) ^ Vaginal Insert (01/01/17 14:55) ^ Vaginal Lavage (01/01/17 14:55) Heart (01/01/17 14:55) Inpatient Certification (01/01/17 ) Specimen To Be Collected PRN (01/01/17 14:55) ^ Saline Lock (01/01/17 14:55) ^ Vaginal Insert (01/01/17 14:55) ^ Vaginal Lavage (01/01/17 14:55) Heart (01/01/17 14:55) Sodium Chloride 0.9% Flush (Ns Flush) (01/01/17 21:00) Sodium Chloride 0.9% Flush (Ns Flush) (01/01/17 15:00) Misoprostol Supp (Cytotec Supp) (01/01/17 19:00) Diet 2200 Ada Cons Carb (01/01/17 Dinner) ^ Other Nursing Orders (01/01/17 15:00) Labs Laboratory Tests Test 01/01/17 13:50 Urine Color LIGHT-YELLOW Urine Turbidity CLEAR Urine pH 6.5 Urine Specific Blaine 1.022 Urine Protein TRACE Urine Glucose (UA) 1000 Urine Ketones 10 Urine Occult Blood TRACE Urine Nitrite NEG Urine Bilirubin NEG Urine Urobilinogen LESS THAN 2.0 Urine Leukocyte Esterase NEG Urine RBC 2 Urine WBC LESS THAN 1 Urine Squamous Epithelial 1 Cells Microscopic Urinalysis Comment CULT NOT INDICATED Assessment/Plan Assessment and Plan will start cytotec tonight for oligohydramnios no more anticoagulation manage diabetes with sliding scale in labor anticipate desires PPTL Janina Brian MD Jan 01, 2017 17:52
[2017-01-01] MEDS: LACTATED RINGER'S 1000 ML INJ 1,000 ML IV SCH (17:56)
[2017-01-01] MEDS: MISOPROSTOL 25 MCG SUPP VAGINAL PRN ×2 (18:28→22:33)
[2017-01-01 19:52] LABS: AUTOMATED NEUTROPHIL # 4.2 TH/MM3 (1.8-7.7); BASOPHIL % 0.1 % (0.0-2.0); EOSINOPHIL % 0.6 % (0.0-4.0); HEMATOCRIT 30.5 % (35.0-46.0); HEMO FLAGS DIFF FINAL; LYMPH % 20.6 % (9.0-44.0); LYMPHOCYTE # 1.3 TH/MM3 (1.0-4.8); MEAN CORPUSCULAR HEMOGLOBIN 30.6 PG (27.0-34.0); MONO % 14.3 % (0.0-8.0); NEUT % 64.4 % (16.0-70.0); PLATELET COUNT 333 TH/MM3 (150-450); RED BLOOD COUNT 3.39 MIL/MM3 (4.00-5.30); WHITE BLOOD COUNT 6.5 TH/MM3 (4.0-11.0)
[2017-01-01] MEDS ORDERED: SODIUM CHLORIDE 0.9% FLUSH 10 ML FLUSH IV FLUSH SCH ×2 (21:00)
[2017-01-01] MEDS ORDERED: INSULIN HUMAN NPH 1,000 UNITS/10 ML VIAL SQ SCH (21:00)
[2017-01-01] MEDS ORDERED: INSULIN HUMAN REGULAR 1,000 UNITS/10 ML VIAL SQ ONE (22:00)
[2017-01-02] VITALS (39 sets, daily range): BP systolic 116; BP diastolic 77; PULSE 77–104; RESP 18; TEMP 98.4
[2017-01-02] MEDS: MISOPROSTOL 25 MCG SUPP VAGINAL PRN ×2 (02:30→06:30)
[2017-01-02] MEDS: LACTATED RINGER'S 1000 ML INJ 1,000 ML IV SCH ×3 (04:12→15:00)
[2017-01-02] MEDS ORDERED: DEXTROSE 50% IN WATER 50 ML VIAL(D50) IV PRN (07:30)
[2017-01-02] MEDS ORDERED: GLUCAGON 1 MG/ML VIAL OTHER PRN (07:30)
[2017-01-02] MEDS ORDERED: OXYTOCIN 30 UNITS-500ML PREMIX 500 ML IV SCH (07:30)
--- NOTE | 2017-01-02 07:32 | PD.LABORPN ---
Subjective Subjective Patient is resting comfortably. Objective Vital Signs Vital Signs Date Time Temp Pulse Resp B/P Pulse Ox O2 Delivery O2 Flow Rate FiO2 01/02/17 05:35 84 01/02/17 05:30 80 01/02/17 05:25 77 01/02/17 05:20 86 01/02/17 05:15 83 01/02/17 05:10 87 01/02/17 05:00 79 01/02/17 04:55 79 01/02/17 04:50 85 01/02/17 04:45 84 01/02/17 04:40 84 01/02/17 04:35 87 01/02/17 04:30 88 01/02/17 04:25 94 01/02/17 04:20 87 01/02/17 04:15 18 01/02/17 04:15 87 01/02/17 04:15 98.4 01/02/17 04:10 88 01/02/17 04:02 116/77 01/02/17 01:45 96 01/02/17 01:40 94 01/02/17 01:35 87 01/02/17 01:30 99 01/02/17 01:25 87 01/02/17 01:20 95 01/02/17 01:15 96 01/02/17 01:10 95 01/02/17 01:05 100 01/02/17 01:00 94 01/02/17 00:50 97 01/02/17 00:45 94 01/02/17 00:40 99 01/02/17 00:35 100 01/02/17 00:30 102 01/02/17 00:25 99 01/02/17 00:20 99 01/02/17 00:15 104 01/02/17 00:10 103 01/02/17 00:05 104 01/02/17 00:00 103 01/01/17 23:55 107 01/01/17 23:50 103 01/01/17 23:45 108 01/01/17 23:36 109 127/85 01/01/17 23:35 106 01/01/17 23:30 105 Objective Pelvic Exam: Cervix: anterior Dilatation: 1-2 Effacement: 20 Station: -3 Presentation: vertex Membranes: intact Uterine Contractions: occasional FHT's: Category: I Baseline: 135 Reactive: + Variability: moderate Decels: none Assessment/Plan Assessment and Plan 36 year old at 35-2/7 weeks gestation. 1. IUP- Category I tracing, reassuring. 2. IOL for oligohydramnios at 35-2/7 weeks gestation- Cytotec then Pitocin. 3. Protein S and Antithrombin III deficiency- Continue Lovenox. 4. GDM- SSI, Diabetic diet. 5. GBS pending 6. Anticipate vaginal delivery sdw Keri Mazariegos MD R2 Jan 02, 2017 07:32
[2017-01-02] MEDS ORDERED: PENICILLIN G POTASSIUM INJ 5,000,000 UNITS in SODIUM CHLORIDE 0.9% INJ 100 ML IV ONE (08:00)
[2017-01-02] MEDS ORDERED: INSULIN HUMAN NPH 1,000 UNITS/10 ML VIAL SQ SCH (09:00)
[2017-01-02] MEDS: INSULIN ASPART SUPPLEMENTAL SCALE SQ SCH ×2 (10:51→16:00)
[2017-01-02 12:56] LABS: AUTOMATED NEUTROPHIL # 4.8 TH/MM3 (1.8-7.7); BASOPHIL % 0.3 % (0.0-2.0); EOSINOPHIL % 0.5 % (0.0-4.0); HEMATOCRIT 33.3 % (35.0-46.0); HEMO FLAGS DIFF FINAL; LYMPH % 18.8 % (9.0-44.0); LYMPHOCYTE # 1.4 TH/MM3 (1.0-4.8); MEAN CELL VOLUME 90.1 FL (80.0-100.0); MEAN CORPUSCULAR HEMOGLOBIN 29.9 PG (27.0-34.0); MEAN CORPUSCULAR HGB CONC 33.2 % (32.0-36.0); MONO % 16.2 % (0.0-8.0); NEUT % 64.2 % (16.0-70.0); PLATELET COUNT 335 TH/MM3 (150-450); RED CELL DISTRIBUTION WIDTH 13.8 % (11.6-17.2); WHITE BLOOD COUNT 7.4 TH/MM3 (4.0-11.0)
[2017-01-02 13:03] LABS: APTT (PATIENT) 23.2 SEC (24.3-30.1); INTERNATIONAL NORMALIZED RATIO 0.9 RATIO; PROTHROMBIN TIME - PATIENT 9.5 SEC (9.8-11.6)
[2017-01-02 13:13] LABS: ALT (GPT) 16 U/L (10-53); ANION GAP 10 MEQ/L (5-15); AST (GOT) 9 U/L (15-37); BICARBONATE 22.6 MEQ/L (21.0-32.0); BLOOD UREA NITROGEN 6 MG/DL (7-18); CHLORIDE 102 MEQ/L (98-107); GLOMERULAR FILTRATION RATE 191 ML/MIN (>89); POTASSIUM 3.9 MEQ/L (3.5-5.1); SODIUM (NA) 135 MEQ/L (136-145)
[2017-01-02 13:16] LABS: ALKALINE PHOSPHATASE 188 U/L (45-117); TOTAL BILIRUBIN ADULT 0.3 MG/DL (0.2-1.0)
[2017-01-02] MEDS: PENICILLIN G POTASSIUM INJ 2,500,000 UNITS in SODIUM CHLORIDE 0.9% INJ 100 ML IV SCH ×2 (15:00→18:30)
--- NOTE | 2017-01-02 15:21 | PD.LABORPN ---
Subjective Subjective comfortable and walking in room Objective Objective sugars requiring no coverage clears prn 2-3/50% / -2 Script category 1 Assessment/Plan Assessment and Plan anticipate soon. Janina Brian MD Jan 02, 2017 15:21
[2017-01-02] MEDS ORDERED: MEASLES, MUMPS, RUBELLA VACCINE 0.5 ML VIAL SQ ONE (16:00)
[2017-01-02] MEDS ORDERED: DIPHTH/TETANUS/ACEL PERTUSSIS (BOOSTER) 0.5 ML VIAL/PFS IM ONE (16:00)
[2017-01-02] MEDS ORDERED: fentaNYL 2MCG-BUPIV 0.125% INJ 100 ML ONE (19:34)
--- NOTE | 2017-01-02 20:18 | PD.OB.DELI ---
Anesthesia: None Episiotomy: None Vaginal Delivery: Normal Presentation: Occiput anterior Nuchal Cord: x1 Delayed cord clamping (45 sec): Yes Infant: Male One Minute : 8 Five Minute : 9 Weight: 5 4 Placenta: Spontaneous delivery Laceration: No lacerations (Dandre appears dysmature and older than we estimated ) Janina Brian MD Jan 02, 2017 20:18
[2017-01-02] MEDS ORDERED: ACETAMINOPHEN 325 MG TAB PO PRN (20:30)
[2017-01-02] MEDS ORDERED: BENZOCAINE 20% TOPICAL SPRAY 60 ML CAN TOPICAL PRN (20:30)
[2017-01-02] MEDS ORDERED: DOCUSATE SODIUM 50 MG/SENNA 8.6 MG TAB PO PRN (20:30)
[2017-01-02] MEDS ORDERED: SODIUM CHLORIDE 0.9% FLUSH 10 ML FLUSH IV FLUSH PRN (20:30)
[2017-01-02] MEDS ORDERED: ONDANSETRON ODT 4 MG TAB PO PRN (20:30)
[2017-01-02] MEDS ORDERED: ZOLPIDEM TARTRATE 5 MG TAB PO PRN (20:30)
[2017-01-02] MEDS ORDERED: ALUMINUM/MAGNESIUM/SIMETH 30 ML CUP PO PRN (20:30)
[2017-01-02] MEDS ORDERED: WITCH HAZEL 50%/GLYCERIN 12.5% 40 PAD JAR TOPICAL PRN (20:30)
[2017-01-02] MEDS ORDERED: SODIUM CHLORIDE 0.9% FLUSH 10 ML FLUSH IV FLUSH SCH (21:00)
[2017-01-02] MEDS: IBUPROFEN 600 MG TAB PO PRN (23:31)
[2017-01-03] MEDS: IBUPROFEN 600 MG TAB PO PRN ×3 (05:08→17:35)
[2017-01-03] MEDS: ENOXAPARIN SODIUM 40 MG/0.4 ML SYRINGE SQ SCH (09:10)
--- NOTE | 2017-01-03 09:14 | HHI.OB ---
Subjective Post Day: 1 Remarks Doing well and very happy some gas pains no excessive bleeding no calf pain Objective Vitals/I&O Vital Signs Date Time Temp Pulse Resp B/P Pulse Ox O2 Delivery O2 Flow Rate FiO2 01/03/17 06:08 18 Objective Remarks FBS 173 GENERAL: Well-nourished, well-developed patient. CARDIOVASCULAR: Regular rate and rhythm without murmurs, gallops, or rubs. RESPIRATORY: Breath sounds equal bilaterally. No accessory muscle use. ABDOMEN/GI: Abdomen soft, non-tender. Fundus: Firm, non-tender at umbilicus. GENITOURINARY: Light to moderate bleeding. EXTREMITIES: No cyanosis or edema, non-tender, without signs of DVT. Medications and IVs Current Medications Medications (Trade) Dose Ordered Sig/Héctor Route Start Time Stop Time Status Last Admin (D50w (Vial) Inj) 50 ml UNSCH PRN IV 01/02/17 07:30 (Glucagon Inj) 1 mg UNSCH PRN OTHER 01/02/17 07:30 (Tylenol) 650 mg Q4H PRN PO 01/02/17 20:30 (Motrin) 600 mg Q6H PRN PO 01/02/17 20:30 01/03/17 05:08 (Americaine 20% Top Spr) 1 spray Q4H PRN TOPICAL 01/02/17 20:30 (Tucks Pads) 1 applic QID PRN TOPICAL 01/02/17 20:30 (Page-Colace) 2 tab Q12H PRN PO 01/02/17 20:30 (Ambien) 5 mg HS PRN PO 01/02/17 20:30 (Mag-Al Plus Susp Liq) 15 ml Q8H PRN PO 01/02/17 20:30 (Zofran Odt) 4 mg Q6H PRN PO 01/02/17 20:30 (Lovenox Inj) 40 mg Q24H SQ 01/03/17 08:00 01/03/17 09:10 Assessment/Plan Assessment and Plan stop all insulin and begin glyberide 2.5 BID continue lovenox 40 until 6 weeks post BTL at [facility] in office (tiny) stay until tomorrow Janina Brian MD Jan 03, 2017 09:14
[2017-01-03] MEDS ORDERED: SIMETHICONE 80 MG CHEWABLE TAB CHEW PRN (09:15)
[2017-01-03] MEDS ORDERED: ENOX40P SQ (09:17)
[2017-01-03] MEDS ORDERED: IBUP-232 PO (09:17)
--- NOTE | 2017-01-03 09:17 | HHI.DCPOC ---
Discharge Care Plan Report Symptoms to Your Doctor -Temperature above 100.5 degrees -Redness, of incision or excessive or foul smelling drainage -Unusual pain or calf pain -Increased vaginal bleeding -Painful or difficulty urinating -Feelings of extreme sadness or anxiety after 2 weeks Goals to Promote Your Health * To prevent worsening of your condition and complications * To maintain your health at the optimal level Directions to Meet Your Goals Take your medications as prescribed Follow your dietary instruction Follow activity as directed Ensure plenty of rest for recovery Drink fluids for hydration Keep your appointments as scheduled Take your immunizations and boosters as scheduled If your symptoms worsen call your PCP, if no PCP go to Urgent Care Center or Emergency Room Smoking is Dangerous to Your Health. Avoid second hand smoke Call the 24-hour crisis hotline for domestic abuse at Janina Brian MD Jan 03, 2017 09:17
[2017-01-03] MEDS ORDERED: GLYB2.5T3 PO (09:20)
[2017-01-03] MEDS: glyBURIDE 2.5 MG TAB PO SCH (17:27)
[2017-01-03 19:50] VITALS: BP 120/69; PULSE 89; RESP 17; TEMP 98.5
[2017-01-04] MEDS: IBUPROFEN 600 MG TAB PO PRN ×2 (02:33→08:23)
[2017-01-04] MEDS: ENOXAPARIN SODIUM 40 MG/0.4 ML SYRINGE SQ SCH (08:23)
[2017-01-04] MEDS: glyBURIDE 2.5 MG TAB PO SCH (08:23)
--- NOTE | 2017-01-04 10:53 | HHI.OB ---
Subjective Post Day: 2 Remarks PPD 2, doing well, stable VS,BS Objective Vitals/I&O Vital Signs Date Time Temp Pulse Resp B/P Pulse Ox O2 Delivery O2 Flow Rate FiO2 01/03/17 19:50 98.5 89 17 01/03/17 19:50 120/69 Objective Remarks FBS 173 GENERAL: Well-nourished, well-developed patient. CARDIOVASCULAR: Regular rate and rhythm without murmurs, gallops, or rubs. RESPIRATORY: Breath sounds equal bilaterally. No accessory muscle use. ABDOMEN/GI: Abdomen soft, non-tender. Fundus: Firm, non-tender at umbilicus. GENITOURINARY: Light to moderate bleeding. EXTREMITIES: No cyanosis or edema, non-tender, without signs of DVT. Medications and IVs Current Medications Medications (Trade) Dose Ordered Sig/Héctor Route Start Time Stop Time Status Last Admin (D50w (Vial) Inj) 50 ml UNSCH PRN IV 01/02/17 07:30 (Glucagon Inj) 1 mg UNSCH PRN OTHER 01/02/17 07:30 (Tylenol) 650 mg Q4H PRN PO 01/02/17 20:30 (Motrin) 600 mg Q6H PRN PO 01/02/17 20:30 01/04/17 08:23 (Americaine 20% Top Spr) 1 spray Q4H PRN TOPICAL 01/02/17 20:30 (Tucks Pads) 1 applic QID PRN TOPICAL 01/02/17 20:30 (Page-Colace) 2 tab Q12H PRN PO 01/02/17 20:30 01/04/17 08:23 (Ambien) 5 mg HS PRN PO 01/02/17 20:30 (Mag-Al Plus Susp Liq) 15 ml Q8H PRN PO 01/02/17 20:30 (Zofran Odt) 4 mg Q6H PRN PO 01/02/17 20:30 (Lovenox Inj) 40 mg Q24H SQ 01/03/17 08:00 01/04/17 08:23 (Mylicon Chew) 80 mg Q8H PRN CHEW 01/03/17 09:15 (Diabeta) 2.5 mg BID@,17 PO 01/03/17 17:00 01/04/17 08:23 Assessment/Plan Assessment and Plan PPD #2, Stable ,cleared for discharge will continue Lovenox and glyburide. Discharge Planning Routine Attending Attestation seen by Pérez Marcum MD Jan 04, 2017 10:53
== END 2017-01-04 12:30 | disposition home or self-care (01) | DRG 775 ==
LOC: H2EB 12:49 → H1EA 01-02 22:28
PROVIDERS: ADMIT Obstetrics & Gynecology; ATTEND Obstetrics & Gynecology
PROC: 3E033VJ Introduction of Other Hormone into Peripheral Vein, Percutaneous Approach (ICD-10-PCS; 2017-01-01)
PROC: 10E0XZZ Delivery of Products of Conception, External Approach (ICD-10-PCS; principal; 2017-01-02)
DX: O41.03X0 Oligohydramnios, third trimester, not applicable or unspecified (principal); D68.59 Other primary thrombophilia; O99.12 Other diseases of the blood and blood-forming organs and certain disorders involving the immune mechanism complicating childbirth; Z37.0 Single live birth; O24.424 Gestational diabetes mellitus in childbirth, insulin controlled; Z3A.35 35 weeks gestation of pregnancy
CPT/HCPCS: 80053; 81001; 82947; 82948; 85025; 85610; 85730; 86900; 86901; 88307; J1650; J1815; J2405; J2540; J2590; J3010; J7120

== ENCOUNTER → 2017-01-26 | Day surgery (SDC) | payer MEDICAID ==
[~2017-01-26] MED LIST changes: +ENOX40P SQ; +GLYB2.5T3 PO; +IBUP-232 PO; -INSU1INJ4 SQ; +KETOROLAC TROMETHAMINE 30 MG/ML (IVP) VIAL IV PUSH ONE; +LACTATED RINGER'S 1000 ML INJ 1,000 ML ONE; +LIDOCAINE 1%/EPINEPHrine 1:100,000 SOLN 20 ML VIAL ONE; -MAKE250I IM; +MIDAZOLAM HCL 2 MG/2 ML VIAL ONE; +ONDANSETRON HCL 4 MG/2 ML VIAL IV PUSH ONE; +PROPOFOL 200 MG/20 ML AMP IV ONE; +ceFAZolin INJ 1,000 MG VIAL ONE
--- NOTE | 2017-01-28 05:12 | MH ---
cc: ANASTASIA MENDEZ DATE OF ADMISSION: 01/26/2017 PREOPERATIVE DIAGNOSIS Multiparity SCHEDULED PROCEDURE Laparoscopic tubal ligation. HISTORY OF PRESENT ILLNESS Jaqui is a very pleasant 36-year-old black female, 10, para 3 with a recent vaginal delivery of her third child. This last had been unplanned. She has a very significant coagulopathy, specifically a protein S deficiency and an antithrombin III deficiency. It was necessary for her to use Lovenox for the entire . She developed very severe gestational diabetes and required high doses of insulin during her and she also was using [place] weekly because of history of labor. When she was term and induced, she underwent an unremarkable vaginal delivery. She had tried IUD in the past which did not work for her and she is not a candidate for oral contraceptives, therefore tubal ligation had been discussed and confirmed as her choice. PAST MEDICAL HISTORY Her general health is otherwise unremarkable. She has no other chronic or systemic illnesses. SOCIAL HISTORY She does not smoke, drink or use illicit drugs. FAMILY HISTORY Noncontributory. PHYSICAL EXAMINATION GENERAL: On physical she is a well-developed, well-nourished black female in no acute distress. VITAL SIGNS: Afebrile with stable vital signs. LUNGS: Clear to auscultation. HEART: Rate and rhythm are regular without murmur, heave or thrills. ABDOMEN: Benign with her fundus no longer palpable. BACK: She has no CVA tenderness. PELVIC EXAM: Her perineum was estrogenized, vault elevated. Cervix multiparous with a mild descent. Uterus of normal size. EXTREMITIES: Unremarkable. She has had her last dose of Lovenox the day before surgery and there was no longer addressing her diabetes. IMPRESSION Multiparous female with multiple comorbidities for future , desirous of sterility. PLAN Planning a laparoscopic tubal ligation. The risks, benefits, expectations, failure rate and alternatives were all described in detail and she was comfortable with her decision. Anastasia Mendez MD PPC/SSB /4:02 AM /5:07 AM
--- NOTE | 2017-01-28 08:40 | MP ---
cc: ANASTASIA MENDEZ DATE OF SURGERY January 26, 2017 PREOPERATIVE DIAGNOSIS Multiparity. POSTOPERATIVE DIAGNOSIS Multiparity. PROCEDURE Laparoscopic tubal ligation. ANESTHESIA General. SURGEON MD Snehal FINDINGS Normal tubes. PROCEDURE Jaqui was appraised of the indications, risks, benefits and alternatives again once more in holding. Her permit was checked. She was taken to the operating room, placed under general endotracheal anesthesia, prepped and draped in the low lithotomy position. Her bladder was emptied with a red rubber after a time-out was performed. She had received 1 gram of Ancef. After examination under anesthesia, the cervix was grasped with tenaculum and acorn placed for manipulation of the uterus. Attention was directed the abdomen where the umbilical area was infiltrated with Marcaine with epi and a second area right in the midline suprapubic area was treated the same. Then a knife was used to make a 5-mm incision in the umbilicus and a trocar and sleeve were placed under direct visualization. 2 layers of carbon dioxide were instilled. Then systematic evaluation of the abdominal and pelvic contents was performed. Seeing no iatrogenic injury or intrinsic pathology, the suprapubic incision was used to place another 5-mm trocar and sleeve and then the right tube was grasped with a Kleppinger and it was burned in three places with care to elevate the tube away from other structures. The left tube was treated the same and then the areas of complete burning were transected with the laparoscopic scissors. Again the area was evaluated and no concerns were noted. The pneumoperitoneum was released with Valsalva and then the instrumentation was removed and a simple interrupted was placed in the umbilicus in the suprapubic area. The vaginal instrumentation was removed. She was placed in dorsal supine position, awoken and taken to the recovery room in stable condition. Anastasia Mendez MD PPC/SSB /4:05 AM /8:35 AM
== END | disposition home or self-care (01) ==
LOC: ESDC 11:06
PROVIDERS: ATTEND Obstetrics & Gynecology
DX: Z30.2 Encounter for sterilization (principal)
CPT/HCPCS: 00851; 58670; J0690; J1885; J2250; J2405; J3010; J7120